=== PATIENT | male | born 1995 | race Caucasian/White ===

== ENCOUNTER 2016-08-08 23:47 | Emergency (ER) | payer OTHER ==
[~2016-08-08] VITALS: Ht 182.9 cm; Wt 105.9 kg
[~2016-08-08 23:47] MED LIST: ALBUTEROL SULF8.5 GM IH; ALBUTEROL17 GM IH; AMOXICILLIN500 M1 PO; KEPPRA500 MG PO; PHENERGAN; PROZAC20 MG PO; RISPERDAL3 MG PO
[2016-08-09 00:16] LABS: HEMATOCRIT 51.4 % (38.0-50.0); MCH 28.6 PG (29.0-34.0); MCHC 33.5 G/DL (30.0-36.0); MCV 85.4 FL (86-99); MEAN PLAT.VOLUME 10.1 uM^3 (9.0-12.4); PLATELET COUNT 250 K/uL (156-360); RBC DIS.WIDTH-CV 14.5 % (11.8-14.6); RBC DIS.WIDTH-SD 45.2 % (39-53); RED BLOOD COUNT 6.02 M/uL (4.00-5.50); WHITE BLOOD COUNT 11.6 K/uL (4.1-10.2)
[2016-08-09 00:27] LABS: CHLORIDE 106 mEq/L (99-109); POTASSIUM 4.2 mEq/L (3.7-5.4); SODIUM 140 mEq/L (136-147)
[2016-08-09 00:29] LABS: GLUCOSE 132 mg/dL (70-99)
[2016-08-09 00:30] LABS: ANION GAP 10 MEQ/L (2-14)
[2016-08-09 00:33] LABS: GFR ESTIMATE (CALCULATED) > 59 mL/min/
[2016-08-09 00:34] LABS: UREA NITROGEN (BUN) 13 mg/dL (9-23)
[2016-08-09 00:35] LABS: CREATINE KINASE 109 IU/L (1-294)
[2016-08-09 00:35] LABS: ADD MIUA? YES; BILIRUBIN NEGATIVE; BLOOD NEGATIVE; COLOR AMBER ((YELLOW)); GLUCOSE (STRIP) NEGATIVE; KETONES 5; LEUKOCYTES NEGATIVE; NITRITE NEGATIVE; PROTEIN (STRIP) 100
[2016-08-09 00:42] LABS: BACTERIA RARE /HPF; EPITHELIAL CELLS RARE /HPF; HYALINE CASTS TNTC /LPF; MUCUS 2+ /LPF; UCUL ADDED? NO; WHITE BLOOD CELLS 0-5 /HPF (0-5)
[2016-08-09 00:43] LABS: GRANULAR CASTS 40-45 /LPF
[2016-08-09 00:44] LABS: AMPHETAMINE NEGATIVE (500 ng/mL); BARBITURATES NEGATIVE (200 ng/mL); BENZODIAZEPINES NEGATIVE (150 ng/mL); COCAINE PRESUMPTIVE POSITIVE (150 ng/mL); INTERNAL CONTROLS VALID? YES; METHADONE NEGATIVE (200 ng/mL); METHAMPHETAMINE NEGATIVE (500 ng/mL); OPIATES (MORPHINE) PRESUMPTIVE POSITIVE (100 ng/mL); OXYCODONE NEGATIVE (100 ng/mL); PHENCYCLIDINE NEGATIVE (25 ng/mL); PROPOXYPHENE NEGATIVE (300 ng/mL); THC CANNABINOIDS PRESUMPTIVE POSITIVE (50 ng/mL); TRICYCLIC ANTIDEPRESSANTS PRESUMPTIVE POSITIVE (300 ng/mL)
[2016-08-09 00:45] LABS: ADD MEDTOX COMMENT Y
[2016-08-09] MEDS ORDERED: KEPPRA500 MG PO (00:57)
[2016-08-09 01:06] VITALS: BP 93/88
[2016-08-09] MEDS ORDERED: CLONIDINE HCL0.1 MG PO (01:06)
[2016-08-09] MEDS ORDERED: TRAZODONE HCL50 MG PO (01:06)
== END 2016-08-09 01:42 | disposition home or self-care (01) ==
LOC: EME 23:47
PROVIDERS: Emergency Medicine
DX: G40.909 Epilepsy, unspecified, not intractable, without status epilepticus (principal); F19.10 Other psychoactive substance abuse, uncomplicated; E86.0 Dehydration; I10 Essential (primary) hypertension; F17.200 Nicotine dependence, unspecified, uncomplicated
CPT/HCPCS: 80048; 81003; 82550; 84999; 85027; 99281; 99285

== ENCOUNTER 2016-08-26 04:05 | Emergency (ER) | payer OTHER ==
[~2016-08-26] VITALS: Ht 188 cm; Wt 113.9 kg
[~2016-08-26 04:05] MED LIST changes: +CLONIDINE HCL0.1 MG PO; +TRAZODONE HCL50 MG PO
[2016-08-26] MEDS ORDERED: NARCAN4 MG NS (05:49)
[2016-08-26 06:15] VITALS: BP 161/82
== END 2016-08-26 06:15 | disposition home or self-care (01) ==
LOC: EME 04:05
DX: T40.1X1A Poisoning by heroin, accidental (unintentional), initial encounter (principal); I10 Essential (primary) hypertension; G40.909 Epilepsy, unspecified, not intractable, without status epilepticus; F17.200 Nicotine dependence, unspecified, uncomplicated
CPT/HCPCS: 99281; 99285